=== PATIENT | female | born 1980 | race Hispanic/Latino ===

== ENCOUNTER 2018-02-20 13:45 | Observation (INO) | payer OTHER ==
[~2018-02-20] VITALS: Ht 165.1 cm; Wt 82.8 kg
[2018-02-20 15:00] VITALS: BP 125/83
[2018-02-20 15:16] LABS: BASOPHILS % (AUTO) 0.3 % (0.0-5.0); EOSINOPHILS % (AUTO) 0.5 % (0.0-8.0); LYMPHOCYTES % (AUTO) 28.8 % (21.0-51.0); MEAN CORPUSCULAR HEMOGLOBIN 30.9 pg (27.0-33.0); MEAN CORPUSCULAR HGB CONC 34.9 g/dL (32.0-36.0); MEAN CORPUSCULAR VOLUME 88.6 fL (79-99); MONOCYTES % (AUTO) 5.7 % (3.0-13.0); NEUTROPHILS % (AUTO) 64.7 % (40.0-77.0); PLATELET COUNT (AUTO) 302 K/uL (130-400); RED CELL DISTRIBUTION WIDTH 13.3 % (11.0-15.5)
[2018-02-20 15:27] LABS: POTASSIUM 4.2 mmol/L (3.5-5.1)
[2018-02-20] MEDS ORDERED: PROP40TA7 PO (15:41)
[2018-02-20] MEDS ORDERED: TRAM50TA4 PO (15:41)
[2018-02-20] MEDS ORDERED: CLON0.1T PO (15:41)
[2018-02-20] MEDS ORDERED: CEFAZOLIN SODIUM 1 GM VIAL IVP SCH (16:15)
[2018-02-23] VITALS (27 sets, daily range): BP systolic 102–146; BP diastolic 47–91
[2018-02-23] MEDS ORDERED: BUPIVACAINE/PF 0.25% 30ML VIAL IJ ONE (06:14)
[2018-02-23] MEDS ORDERED: EPINEPHRINE 1 MG/ML AMPULE ONE (06:14)
[2018-02-23] MEDS ORDERED: BACITRACIN 50,000 UNIT VIAL ONE (06:15)
[2018-02-23] MEDS ORDERED: THROMBIN-JMI 20000 UNIT KIT TP ONE (06:15)
[2018-02-23] MEDS ORDERED: LACTATED RINGERS 1000ML 1,000 ML IV ONE (06:27)
[2018-02-23] MEDS: CEFAZOLIN SODIUM 1 GM VIAL ONE ×2 (06:57→07:50)
[2018-02-23] MEDS ORDERED: MIDAZOLAM HCL 1 MG/ML 2ML VIAL ONE ×2 (07:02→07:03)
[2018-02-23] MEDS ORDERED: PROPOFOL 10 MG/ML 20ML VIAL IV ONE (07:03)
[2018-02-23] MEDS ORDERED: GLYCOPYRROLATE 0.2 MG/ML 5 ML VIAL ONE (07:03)
[2018-02-23] MEDS ORDERED: DEXAMETHASONE SOD PHOSPHATE 10MG/ML 1ML VIAL ONE (07:03)
[2018-02-23] MEDS ORDERED: ONDANSETRON HCL 4 MG/2 ML VIAL ONE ×2 (07:03→10:20)
[2018-02-23] MEDS ORDERED: NEOSTIGMINE 5MG/5ML SYR IV ONE (07:03)
[2018-02-23] MEDS ORDERED: LIDOCAINE PF 2% 5ML ABBOJECT ONE (07:03)
[2018-02-23] MEDS ORDERED: FENTANYL CITRATE PF 50 MCG/1 ML 2ML VIAL ONE ×2 (07:04→11:25)
[2018-02-23] MEDS ORDERED: FENTANYL CITRATE PF 50 MCG/1 ML 5ML AMP IV ONE (07:59)
[2018-02-23] MEDS ORDERED: MANNITOL 20% 500ML BAG 500 ML IV ONE (08:06)
[2018-02-23] MEDS ORDERED: MICROFIBRILLAR COLLAGEN 1 GM PACKAGE TP ONE (08:33)
[2018-02-23] MEDS ORDERED: SUCCINYLCHOLINE CHLORIDE 20 MG/ML 10 ML VIAL ONE (10:16)
[2018-02-23] MEDS ORDERED: ROCURONIUM BROMIDE 10MG/1ML 5ML VL ONE ×2 (10:16)
[2018-02-23] MEDS ORDERED: LIDOCAINE HCL 4% LTA SOL 4 ML VIAL ONE (10:17)
[2018-02-23] MEDS ORDERED: METOCLOPRAMIDE 10 MG/2 ML VIAL ONE (10:20)
[2018-02-23] MEDS ORDERED: ARTIFICIAL TEARS 3.5 GM OINTMENT ONE (10:21)
[2018-02-23] MEDS ORDERED: CEFAZOLIN SODIUM 1 GM VIAL ONE (11:25)
[2018-02-23] MEDS: CEFAZOLIN SODIUM 1 GM VIAL IVP SCH ×2 (11:40→12:00)
[2018-02-23] MEDS: LACTATED RINGERS 1000ML 1,000 ML IV SCH (11:48)
[2018-02-23] MEDS ORDERED: PROMETHAZINE HCL 25 MG/ML 1ML AMPULE IM PRN (12:00)
[2018-02-23] MEDS ORDERED: CEFAZOLIN 2GM / 50 ML 50 ML IV SCH (12:00)
[2018-02-23] MEDS ORDERED: TRAMADOL HCL 50 MG TABLET PO PRN ×2 (12:00→17:30)
[2018-02-23] MEDS ORDERED: MORPHINE SULFATE 2 MG/ML 1ML SYG IVP PRN (12:00)
[2018-02-23] MEDS ORDERED: SODIUM CHLORIDE 0.9% 10 ML VIAL IVP PRN (12:00)
[2018-02-23] MEDS ORDERED: KETOROLAC TROMETHAMINE 30MG/ML ONE (12:09)
[2018-02-23] MEDS ORDERED: MEPERIDINE-PF 25 MG/ML SYG ONE ×2 (12:27→12:37)
[2018-02-23] MEDS: DEXAMETHASONE SOD PHOSPHATE 4 MG/ML 1ML VIAL IVP SCH ×3 (13:36→23:23)
[2018-02-23] MEDS: HYDROCODONE/ACETAMINOPHEN 5/325 MG TAB PO PRN (16:05)
[2018-02-23] MEDS ORDERED: LORAZEPAM 2 MG/ML 1 ML VIAL IVP PRN ×2 (17:15)
[2018-02-23] MEDS: MORPHINE SULFATE 4 MG/1ML SYG IV PRN ×2 (19:26→23:31)
[2018-02-23] MEDS ORDERED: CLONIDINE HCL 0.1 MG TABLET PO SCH (21:00)
[2018-02-24] MEDS: LACTATED RINGERS 1000ML 1,000 ML IV SCH (01:54)
[2018-02-24 04:00] VITALS: BP 144/62
[2018-02-24] MEDS: MORPHINE SULFATE 4 MG/1ML SYG IV PRN (04:08)
[2018-02-24] MEDS: DEXAMETHASONE SOD PHOSPHATE 4 MG/ML 1ML VIAL IVP SCH (05:49)
[2018-02-24 07:24] VITALS: BP 137/73
[2018-02-24] MEDS ORDERED: CEFAZOLIN SODIUM 1 GM VIAL ONE (07:54)
[2018-02-24] MEDS: HYDROCODONE/ACETAMINOPHEN 5/325 MG TAB PO PRN (08:23)
[2018-02-24] MEDS ORDERED: PROPRANOLOL HCL 20 MG TAB PO SCH (09:00)
== END 2018-02-24 09:00 | disposition home or self-care (01) ==
LOC: DAHIP 02-23 06:04 → 4AH 02-23 13:03 → EDSTATUS 02-23 13:45
PROVIDERS: ADMIT Neurological Surgery; ATTEND Neurological Surgery
DX: M50.121 Cervical disc disorder at C4-C5 level with radiculopathy (principal); M50.122 Cervical disc disorder at C5-C6 level with radiculopathy; M50.123 Cervical disc disorder at C6-C7 level with radiculopathy; M50.022 Cervical disc disorder at C5-C6 level with myelopathy; M50.023 Cervical disc disorder at C6-C7 level with myelopathy; M50.021 Cervical disc disorder at C4-C5 level with myelopathy; I10 Essential (primary) hypertension
CPT/HCPCS: 22551; 22552 ×2; 22846; 36415; 72020; 80051; 84703; 85025; 96374; 96375; 96376 ×2; A4218; A4510; A4600; A4649; C1776; G0378 ×28; J0171; J0330; J0690 ×3; J1100 ×5; J1885; J2001; J2175 ×2; J2250 ×2; J2270 ×3; J2405 ×2; J2704; J2710; J2765; J3010 ×3; J3490 ×5; J7120 ×4

== ENCOUNTER → 2018-09-29 | Outpatient (CLI) | payer OTHER ==
[~2018-09-29] MED LIST: CLON0.1T PO; PROP40TA7 PO; TRAM50TA4 PO
== END | disposition home or self-care (01) ==
LOC: OIH 09:25
PROVIDERS: ATTEND Neurological Surgery
DX: M47.812 Spondylosis without myelopathy or radiculopathy, cervical region (principal); M43.22 Fusion of spine, cervical region
CPT/HCPCS: 72040

== ENCOUNTER → 2018-10-17 | Outpatient (CLI) | payer OTHER ==
[~2018-10-17] MED LIST changes: +GADODIAMIDE 10 MMOL/20 ML ML IV ONE
== END | disposition home or self-care (01) ==
LOC: RAH 06:58
PROVIDERS: ATTEND Neurological Surgery
DX: M47.22 Other spondylosis with radiculopathy, cervical region (principal); M50.11 Cervical disc disorder with radiculopathy, high cervical region; M48.02 Spinal stenosis, cervical region
CPT/HCPCS: 72156; A9579